=== PATIENT | male | born 1945 | race Caucasian/White ===

== ENCOUNTER 2017-07-14 07:37 | Day surgery (SDC) | payer MEDICARE, BC ==
[2017-07-14] MEDS ORDERED: Propofol 200 MG/20 ML SDV ONE ×3 (08:08→10:33)
[2017-07-14] MEDS ORDERED: Neostigmine Methylsulfate 1 MG/ML 5 ML Syringe ONE (08:08)
[2017-07-14] MEDS ORDERED: Rocuronium 50 MG/5 ML Vial ONE (08:08)
[2017-07-14] MEDS ORDERED: Ondansetron 4 MG/2 ML SDV ONE (08:08)
[2017-07-14] MEDS ORDERED: Succinylcholine 200 MG/10 ML MDV ONE (08:08)
[2017-07-14] MEDS ORDERED: Dexamethasone 4 MG/ML SDV ONE (08:08)
[2017-07-14] MEDS ORDERED: Glycopyrrolate 0.2 MG/ML 5 ML MDV ONE (08:08)
[2017-07-14] MEDS ORDERED: Dextrose 5%-Lactated Ringers 1,000 ML IV SCH (08:45)
[2017-07-14] MEDS ORDERED: Doxycycline 100 MG in Sodium Chloride 0.9% 100 ML IV ONE (09:00)
[2017-07-14] MEDS ORDERED: Midazolam 1 MG/ML 2 ML SDV ONE (09:13)
[2017-07-14] MEDS ORDERED: fentaNYL 100 MCG/2 ML SDV ONE (09:13)
[2017-07-14] MEDS ORDERED: Bupivacaine 0.5% 50 ML MDV ONE (09:46)
[2017-07-14] MEDS ORDERED: Lidocaine 1% with EPINEPHrine 1:100,000 50 ML MDV ONE (09:46)
[2017-07-14] MEDS ORDERED: Bacitracin Oint 1 GM U/D Packet ONE (10:55)
[2017-07-14 12:08] VITALS: BP 118/84
--- NOTE | 2017-07-15 12:39 | OR ---
DATE OF PROCEDURE: 07/14/2017 PREOPERATIVE DIAGNOSIS: Chronically painful right cervical lymph node. POSTOPERATIVE DIAGNOSIS: Right cervical lymph node biopsy ([id number]). ANESTHESIA: Local plus IV sedation. INDICATION FOR PROCEDURE: This is a 72-year-old male presenting with a lymph node that has remained painful now for several weeks or months. This is located over the submandibular gland and has been felt by ultrasound. It remains somewhat difficult to identify by palpitation but with some guidance from the patient, it can be palpated and he confirms this area that is uncomfortable. Plan is to proceed with excisional biopsy with using intraoperative ultrasound help to guide in the dissection to be sure that we are getting out the lymph node that is in question as seen on the previous recent ultrasound. Potential risks including bleeding, infection, injury to nerves in the area as well as the possibility may have some persistent discomfort postprocedure were gone over and the patient wishes to proceed. DETAILS OF PROCEDURE: The patient was taken to the operating room and placed in a supine position with the head being turned somewhat toward the left. After IV sedation was administered, those areas were then prepped and draped. Using ultrasound probe with sterile probe covered, the lymph node was identified. This was located over the right submandibular gland just below the mandible. That area was anesthetized with 1% lidocaine following along the skin creases in that area. The skin and subcutaneous tissue and platysma layers were then divided. As one dissected further down through the cervical fascia, care was taken to avoid damaging or injuring any of the nerves in the area, especially in this area of the marginal mandibular nerve. Close monitoring of the facial structures was maintained also as feedback if those nerves would be coming into the field. Eventually, the lymph node, which was seen on the ultrasound just posterior to fascial vein was identified adjacent to the facial vein and was dissected free from the surrounding soft tissues with electrocautery and the specimen delivered from the field. A small corner was cut and sent for cultures, even though it is soft, although small it was somewhat edematous in appearance. At this point, no further problems noted. The incision was closed with 2 layers of 4-0 Vicryl stitch deep, a 6-0 Vicryl subdermal stitch, and then a 5-0 Prolene skin stitch as well as bacitracin applied. There were no other complications. The patient was taken to the recovery room in satisfactory condition. Chris Davila MD /[id number]
== END 2017-07-14 12:37 | disposition home or self-care (01) ==
LOC: JP.SDS 07:37
PROVIDERS: ATTEND Surgery
PROC: 07B10ZX Excision of Right Neck Lymphatic, Open Approach, Diagnostic (ICD-10-PCS; principal; 2017-07-14)
DX: R59.9 Enlarged lymph nodes, unspecified (principal)
CPT/HCPCS: 38510; 76998; 87015; 87070; 87102; 87116; 87205; 87206; 87220; 88305; 88341; 88342; J2250; J2704; J3010; J7030; J7042; J0330; J1100; J2405; J2710

== ENCOUNTER 2022-08-29 08:07 | Day surgery (SDC) | payer MEDICARE ==
[~2022-08-29 08:07] MED LIST: Sodium Chloride 0.9% 1,000 ML IV SCH
[2022-08-29] MEDS ORDERED: Sodium Chloride 0.9% 1,000 ML IV SCH (08:45)
[2022-08-29] MEDS ORDERED: Propofol 200 MG/20 ML SDV ONE (09:57)
[2022-08-29 11:30] VITALS: BP 148/60; PULSE 57
== END 2022-08-29 11:40 | disposition home or self-care (01) ==
LOC: JP.SDS 08:07
PROVIDERS: ATTEND Surgery
DX: Z12.11 Encounter for screening for malignant neoplasm of colon (principal); E11.9 Type 2 diabetes mellitus without complications; Z86.73 Personal history of transient ischemic attack (TIA), and cerebral infarction without residual deficits
CPT/HCPCS: G0121; J2704; J7030